=== PATIENT | male | born 1985 | race Caucasian/White ===

== ENCOUNTER 2020-05-08 16:29 | Inpatient (IN) | payer MEDICARE, MEDICAID, SELFPAY ==
[2020-05-08] VITALS (26 sets, daily range): BP systolic 131–157; BP diastolic 93–111; PULSE 63–94; RESP 12–21; TEMP 36.8; O2SAT 83–100; BMI 23.2
--- NOTE | ~2020-05-08 | CT_ITS ---
EXAMINATION: CT abdomen pelvis w con INDICATION: Patient unresponsive, possible overdose TECHNIQUE: Computed tomographic images of the abdomen and pelvis were obtained after the administrati on of 100 cc of Omnipaque 350 intravenous contrast. The dose-length product (DLP) was 1216.43 mGy-cm. Automated exposure control and iterative reconstruction technique were employed. COMPARISON: None available FINDINGS: There is near complete opacification of the right lower lobe. Airspace opacities are presen t in the left lower lobe. The heart size is normal. The liver, spleen, gallbladder, and adrenal gland s are normal. There is focal fatty infiltration the tail of the pancreas. The kidneys are unremarkabl e. No pathologically enlarged abdominal or pelvic lymph nodes are identified. There is no free intrap eritoneal gas or evidence of bowel obstruction. The appendix is normal. There is no free fluid. The b ladder is decompressed by Sosa catheter. Internal stabilization hardware stabilizes an old left pelv ic fractures. There was liquid stool in the colon to the level of the rectum. Healed right pelvic fra ctures are noted. There are also multiple healed bilateral rib fractures. Contrast in the inferior ve na cava is due to injection through a peripheral IV in the left foot. IMPRESSION: 1. Near complete opacification of the right lower lobe and left lower lobe airspace opacities, consis tent with pneumonia, possibly aspiration. 2. Liquid stool throughout the colon to the level of the rectum which could reflect diarrhea, possibl y enterocolitis. Reviewed, dictated and finalized at location A. ATIONS SUPPORT MANAGER IMPRESSION: 1. Near complete opacification of the right lower lobe and left lower lobe airs pace opacities, consistent with pneumonia, possibly aspiration. 2. Liquid stool throughout the colon to the level of the rectum which could ref lect diarrhea, possibly enterocolitis.
--- NOTE | ~2020-05-08 | XR_ITS ---
EXAMINATION: XR chest 1V portable DATE: 05/09/2020 06:10 INDICATION: Lung disease TECHNIQUE: frontal view of the chest was obtained. COMPARISON: Chest radiograph dated 05/08/2020 FINDINGS: Endotracheal tube tip 1.1 cm above the ubaldo. Nasogastric tube extends below the left hemidiaphragm with distal tip collimated off the study. Persistent volume loss in the right hemithorax. Sternal un changed scattered linear regions of atelectasis/scarring in the right mid and lower and left lower jennifer ng zones. Interval increase in more patchy airspace opacities scattered throughout the right lung. No pleural effusion or pneumothorax. Heart size is normal. Internal fixation of a chronic left scapular fracture with multiple plate and screws. Unchanged small radiopaque foreign body projecting over the left axilla. Multiple old healed bilateral rib fractures. IMPRESSION: 1. Increasing volume loss in the right hemithorax with increasing airspace opacities throughout the r ight lung consistent with atelectasis and/or pneumonia. Reviewed, dictated and finalized at location A. UNITY SERVICE SPECIALIST IMPRESSION: 1. Increasing volume loss in the right hemithorax with increasing airspace opac ities throughout the right lung consistent with atelectasis and/or pneumonia.
--- NOTE | ~2020-05-08 | CT_ITS ---
EXAMINATION: CT cervical spine wo con DATE: 05/08/2020 18:02 INDICATION: Head injury TECHNIQUE: Computed tomography (CT) of the cervical spine was performed without intravenous contrast. The dose-length product (DLP) was 451.45 mGy-cm. Automated exposure control and iterative reconstruc tion technique were employed. COMPARISON: None FINDINGS: There is no acute fracture, dislocation, or subluxation. Multiple healed bilateral rib frac tures are noted. In addition, stabilization hardware is present in the left scapula and mandible on t he hr manager radiograph. The vertebral body heights, alignment, and intervertebral disc spaces are normal . The paravertebral soft tissues are unremarkable. The odontoid is intact. IMPRESSION: 1. No acute osseous abnormality. Reviewed, dictated and finalized at location A. LATORY AFFAIRS STRATEGY SPECIALIST
--- NOTE | ~2020-05-08 | XR_ITS ---
EXAMINATION: XR abdomen NG/feed tube insert INDICATION: OG placement TECHNIQUE: Portable AP KUB-NG at 1957 hours COMPARISON: None available FINDINGS: The enteric tube is in the stomach. Contrast from earlier CT examination partially opacifie s the urinary tract. Right basilar airspace opacities are again noted. IMPRESSION: 1. Enteric tube in the stomach. Reviewed, dictated and finalized at location A. WATCH
--- NOTE | ~2020-05-08 | CT_ITS ---
EXAMINATION: CT brain wo con INDICATION: Head injury COMPARISON: 03/15/2019 TECHNIQUE: Standard unenhanced head CT. The dose-length product (DLP) was 605.33 mGy-cm. The mA was a djusted according to patient size. Iterative reconstruction technique was employed. FINDINGS: There is no intracranial hemorrhage, acute infarction, or abnormal mass lesion. The ventric les are normal. There is no abnormal mass effect or midline shift. The wilkins-white matter differentiat ion is normal. The basal cisterns are patent. The orbits are normal. There is mild mucosal thickening of the paranasal sinuses. IMPRESSION: 1. No acute intracranial abnormality. Reviewed, dictated and finalized at location A. DIPPER
--- NOTE | ~2020-05-08 | XR_ITS ---
EXAMINATION: XR chest ET placement INDICATION: Endotracheal tube insertion TECHNIQUE: Portable AP chest at 1724 hours COMPARISON: 08/14/2018 FINDINGS: The endotracheal tube ends 3.7 cm above the ubaldo. There are multiple old left-sided rib f ractures. Surgical hardware is noted in the left scapula. No pleural effusion or pneumothorax is iden tified. The cardiomediastinal silhouette is normal. There is chronic opacity of the right lung base. IMPRESSION: 1. Endotracheal tube 3.7 cm above the ubaldo. Reviewed, dictated and finalized at location A. ENTARY EDUCATOR
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
[2020-05-08] MEDS: RAPID SEQUENCE INTUBATION KIT 1 EACH (16:49)
--- NOTE | 2020-05-08 16:55 | ECG_ITS ---
Measurements Intervals [place] Rate: 88 P: 64 [place]: 156 QRS: 57 QRSD: 98 T: 55 QT: 365 QTc: 442 Interpretive Statements SINUS RHYTHM NORMAL ECG Electronically Signed On 05-08-2020 19:47:44 CD REACTOR OPERATOR HEAD by Siva Joseph D.O.
[2020-05-08 17:05] LABS: Alveolar/Arterial O2 Gradient 384.1 mmHg; Base Excess ABG 1.9 mEq/l (+/-2.0); Fractional Inspired Oxygen 100 %; Oxygen Content ABG 20.6 %vol (16.0-22.0); Oxygen Saturation ABG 99.7 % (95.0-100.0); Oxyhemoglobin 98.4 % THb (90.0-100.0); PCO2 ABG 39.1 mmHg (35.0-45.0); PO2 ABG 289.8 mmHg (80.0-100.0); Site Drawn LEFT RADIAL; Total Hemoglobin 14.4 g/dL (12.0-18.0); pH ABG 7.441 (7.350-7.450)
[2020-05-08 17:06] LABS: Device VENTILATOR; Modified Allen's Test Pass
[2020-05-08 17:09] LABS: Arterial Blood Gas Vent Mode CMV; Arterial Blood Gas Ventilator rate 18 /MIN
[2020-05-08 17:10] LABS: Arterial Blood Gas PEEP 5 cmH2O; Arterial Blood Gas Tidal Volume 540 ml
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
[2020-05-08] MEDS: NALOXONE HCL INJ 2 MG/2 ML AMP 4 MG (18:13)
[2020-05-08] MEDS: MIDAZOLAM HCL (*CRX) 2 MG/2 ML VIAL (18:25)
[2020-05-08] MEDS: FENTANYL 2,500MCG/NS250ML(*CRX 2,500 MCG/250 ML BAG IV CONT (18:38)
[2020-05-08] MEDS: SODIUM CHLORIDE 0.9% IV 1,000 ML 999 ML IV CONT ×2 (18:43→18:51)
[2020-05-08 18:55] LABS: Basophils Absolute Auto 0.1 K/mm3 (0.0-0.1); Basophils Percent Auto 0.6 % (0.2-1.2); Eosinophils Absolute Auto 0.4 K/mm3 (0-0.3); Eosinophils Percent Auto 3.7 % (0-4.4); Hematocrit 39.7 % (42.0-52.0); Hemoglobin 13.1 g/dL (14.0-18.0); Immature Granulocyte Absolute 0.04 K/mm3 (0.00-0.031); Immature Granulocyte Percent A 0.4 % (0-0.5); Lymphocytes Absolute Auto 1.94 K/mm3 (0.9-3.2); Lymphocytes Percent Auto 17.8 % (18.3-44.2); Mean Corpuscular Hemoglobin 31.6 pg (26-34); Mean Corpuscular Volume 95.7 fl (80-100); Monocytes Absolute Auto 0.9 K/mm3 (0.1-0.6); Monocytes Percent Auto 7.9 % (2.6-8.5); Neutrophils Absolute Auto 7.6 K/mm3 (1.3-6.7); Neutrophils Percent Auto 69.6 % (45.5-73.1); Platelet Count Result 210 k/mm3 (150-375); Red Blood Count 4.15 M/mm3 (4.6-6.20); Red Cell Distribution Width 11.9 % (11.5-14.5); White Blood Count 10.9 K/mm3 (4.5-10.0)
[2020-05-08 18:59] LABS: Add Urine Microscopic? YES; Appearance Urine Clear (Clear); Bilirubin Urine Negative (Negative); Blood Urine Negative (Negative); Color Urine Yellow (Yellow); Glucose Urine UA Negative (Negative); Ketones Urine Negative (Negative); Leukocyte Esterase Ur Negative LEU/UL (Negative); Mucus Urine Rare /lpf; Nitrate Urine Negative (Negative); Protein Urine 2+ mg/dL (Negative); Squamous Epithelial Cell Urine Occasional /hpf (Few); WBC Urine 0-3 /hpf
[2020-05-08 19:07] LABS: Acetaminophen < 10 ug/mL (10-30); Ammonia < 9 umol/L (9-30); Ethanol < 10 mg/dL (<10); Lactic Acid Reflex 1.5 mmol/L (0.7-2.1); Salicylate < 1.0 mg/dL (2-20)
[2020-05-08 19:09] LABS: Amphetamine Screen Urine Negative (Negative); Barbiturate Screen Urine Negative (Negative); Benzodiazepines Screen Urine Positive (Negative); Cannabinoid Screen Urine Positive (Negative); Cocaine Screen Urine Positive (Negative); Methadone Screen Urine Negative (Negative); Opiate Screen Urine Negative (Negative); Phencyclidine Screen Urine Negative (Negative)
[2020-05-08 19:16] LABS: Specific Grav Ur 1.041 (1.001-1.035)
[2020-05-08 19:23] LABS: Alanine Aminotransferase 81 U/L (4-50); Albumin Level 3.8 g/dL (3.5-5.1); Alkaline Phosphatase 90 U/L (38-126); Anion Gap 6 mmol/L (8-16); Aspartate Amino Transferase 71 U/L (17-59); Bilirubin,Total 0.6 mg/dL (0.2-1.3); Blood Urea Nitrogen 16 mg/dL (9-20); Carbon Dioxide 30 mmol/L (22-30); Chloride 98 mmol/L (98-107); Creatine Kinase 63 U/L (55-170); Estimated CRCL calculation 116 ml/min; Estimated Glomerular Filt Rate > 60; Glucose 91 mg/dL (75-110); Potassium 4.2 mmol/L (3.4-5.0); Sodium 134 mmol/L (137-145)
[2020-05-08 19:27] LABS: CRP 0.6 mg/dL (<1.0)
[2020-05-08 19:35] LABS: Troponin I < 0.012 ng/mL (0.000-0.034)
[2020-05-08 19:41] LABS: INR 0.9
[2020-05-08 19:42] LABS: Partial Thromboplastin Time 29.2 SECONDS (22.3-36.8)
[2020-05-08] MEDS: PROPOFOL IV EMULSION 100 ML 16.59 MG IV CONT (22:00)
--- NOTE | 2020-05-08 22:00 | ADMGEN ---
This patient, Tomas Cobb, was admitted to Intensive Care Unit-7. Patient/family oriented to hospital policies and general routines including ID bracelet, bed and alarms, visiting hours, pain management, procedures, bathroom and other care routines, personal items, smoking policy, room service/diet, and visiting hours. Information on how to activate the Rapid Response Team has been discussed. Patient/Family are encouraged to report perceived risks to care and to ask questions if they do not understand what they are told or what they should do.
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
[2020-05-09] VITALS (23 sets, daily range): BP systolic 109–138; BP diastolic 68–108; PULSE 72–110; RESP 17–22; TEMP 36.8–37.4; O2SAT 96–100; BMI 23.2
[2020-05-09] MEDS: SODIUM CHLORIDE 0.9% IV 1,000 ML 100 ML IV CONT
--- NOTE | 2020-05-09 00:44 | ADMGEN ---
This patient, Tomas Cobb, was admitted to Intensive Care Unit-7 on 05/08/2020 at 2200 from the Emergency Department. Patient/family oriented to hospital policies and general routines including ID bracelet, bed and alarms, visiting hours, pain management, procedures, bathroom and other care routines, personal items, smoking policy, room service/diet, and visiting hours. Information on how to activate the Rapid Response Team has been discussed. Patient/Family are encouraged to report perceived risks to care and to ask questions if they do not understand what they are told or what they should do.
[2020-05-09] MEDS: PROPOFOL IV EMULSION 100 ML 22.05 MG IV CONT ×3 (03:30→13:00)
[2020-05-09 06:49] LABS: Alveolar/Arterial O2 Gradient 185.5 mmHg; Base Excess ABG -2.1 mEq/l (+/-2.0); Carboxyhemoglobin 0.3 % THb (0-2.0); Fractional Inspired Oxygen 40 %; HCO3 ABG 19.6 mEq/l (22.0-26.0); Methemoglobin ABG 0.4 %THb (0-1.5); Oxygen Content ABG 18.4 %vol (16.0-22.0); Oxygen Saturation ABG 95.5 % (95.0-100.0); Oxyhemoglobin 93.9 % THb (90.0-100.0); PCO2 ABG 26.2 mmHg (35.0-45.0); PO2 ABG 69.6 mmHg (80.0-100.0); PO2 FiO2 Ratio Arterial Blood 1.74 %; Reduced Hemoglobin 5.4 %THb (0-5.0); Total Hemoglobin 13.9 g/dL (12.0-18.0); pH ABG 7.492 (7.350-7.450)
[2020-05-09 06:51] LABS: Arterial Blood Gas Ventilator rate 18 /MIN; Device VENTILATOR; Modified Allen's Test Unable to perform; Site Drawn RIGHT RADIAL
[2020-05-09 06:52] LABS: Arterial Blood Gas PEEP 5 cmH2O; Arterial Blood Gas Tidal Volume 540 ml; Arterial Blood Gas Vent Mode CMV
[2020-05-09] MEDS: ENOXAPARIN 40 MG/0.4 ML SYRINGE SUB-Q (09:18)
[2020-05-09] MEDS: FAMOTIDINE 20 MG/2 ML VIAL IV PUSH (09:18)
--- NOTE | 2020-05-09 11:09 | PCRCNOTE ---
ABG NOT DRAWN PER DR. EDOUARD.
--- NOTE | 2020-05-09 11:36 | PCDIET ---
If unable to extubate later today, recommend Jevity 1.2 at goal rate of 45mL/hr with 30mL water flush every 4 hours. Will follow up as scheduled.
[2020-05-09 12:14] LABS: SARS-CoV-2 RNA PCR Negative
--- NOTE | 2020-05-09 13:29 | WPDCNINT ---
Assessment and Plan Assessment and plan (1) Acute respiratory failure: Code(s): J96.00 - Acute respiratory failure, unspecified whether with hypoxia or hypercapnia Status: Acute Assessment and Plan: Secondary to encephalopathy and aspiration pneumonia CT MPRESSION: 1. Near complete opacification of the right lower lobe and left lower lobe airspace opacities, consistent with pneumonia, possibly aspiration. 2. Liquid stool throughout the colon to the level of the rectum which could reflect diarrhea, possibly enterocolitis. Patient placed on pressure support ventilation this morning but was not awake enough and had low tidal volume. Fentanyl infusion was discontinued. I reassess the patient later in the afternoon and he feels to be more awake of propofol and placed on pressure support ventilation. I will try to extubate if patient does well (2) Pneumonia: Code(s): J18.9 - Pneumonia, unspecified organism Status: Acute Assessment and Plan: Blood cultures pending Patient is on Zosyn (3) Polysubstance abuse: Code(s): F19.10 - Other psychoactive substance abuse, uncomplicated Status: Acute Assessment and Plan: Currently sedated with propofol and fentanyl. I have discontinue sedation and put him on sedation holiday and waiting for him to wake up enough to be extubated. (4) Encephalopathy: Code(s): G93.40 - Encephalopathy, unspecified Status: Acute Assessment and Plan: Secondary to poly substance abuse Head and cervical spine CT were negative Patient now waking up and following commands but is still fairly drowsy to be extubated Additional Plan DVT prophylaxis -Lovenox Stress ulcer prophylaxis -Pepcid Nutrition -NPO Code Status - Full Code Total Critical Care Time - 40 minutes Due to a high probability of clinically significant, life threatening deterioration, the patient required my highest level of preparedness to intervene emergently and I personally spent this critical care time directly and personally managing the patient. This critical care time included obtaining a history; examining the patient; pulse oximetry; ordering and review of studies; arranging urgent treatment with development of a management plan; evaluation of patient's response to treatment; frequent reassessment; and discussions with other providers. It was exclusive of separately billable procedures and treating other patients and teaching time. Please see Assessment and Plan section and the rest of the note for further information on patient assessment and treatment [id number] Programmer Consult Note Consult date: 05/09/20 Time Seen: 08:15 HPI: Tomas Cobb is a 34 year old male with unknown medical history except polysubstance abuse who was brought to the emergency department yesterday bya EMS after he was found unresponsive. In ED was suspected the patient overdosed on drugs and he did not respond to Narcan. He was intubated started on sedation. Was positive for benzodiazepine cocaine and cannabinoids. ED physician told me the patient had Xanax tablets in his socks. Patient was admitted to ICU for further evaluation management This morning when I saw the patient he continues to be on mechanical ventilation and was sedated with propofol and fentanyl. History obtained from chart and Physician sign out. Pt intubated and sedated and unable to provide any other history. Review of Systems Review of Systems: ROS unobtainable: Yes unobtainable due to endotracheal tube PMFSH Past Medical History Medical History Polysubstance abuse Surgical History Surgical History Surgical history unknown Family History Family History Other Family history unknown Social History Social History Social
--- NOTE | 2020-05-09 15:14 | PM.EVENT ---
Event Note Event Note Event Note: Midline placed as nurses were unable to draw any blood for samples. Patient a lot more awake and following commands. Will not cooperate for sedation holiday and breathing trial and is getting agitated. Since patient is saturating 100% on 30% FiO2 and was intubated mostly for altered mental status I will extubate patient and monitor. NPO for now
[2020-05-09 15:20] LABS: Alanine Aminotransferase 50 U/L (4-50); Albumin Level 3.1 g/dL (3.5-5.1); Alkaline Phosphatase 79 U/L (38-126); Anion Gap 6 mmol/L (8-16); Aspartate Amino Transferase 31 U/L (17-59); Blood Urea Nitrogen 8 mg/dL (9-20); CRP 2.7 mg/dL (<1.0); Calcium 8.1 mg/dL (8.4-10.2); Carbon Dioxide 25 mmol/L (22-30); Chloride 108 mmol/L (98-107); Creatine Kinase 34 U/L (55-170); Estimated CRCL calculation 131 ml/min; Estimated Glomerular Filt Rate > 60; Glucose 85 mg/dL (75-110); Magnesium 1.9 mg/dL (1.6-2.3); Phosphorus 3.6 mg/dL (2.5-4.5); Potassium 3.3 mmol/L (3.4-5.0); Sodium 139 mmol/L (137-145)
[2020-05-09 15:22] LABS: Basophils Percent Auto 0.3 % (0.2-1.2); Eosinophils Percent Auto 0.3 % (0-4.4); Hemoglobin 11.9 g/dL (14.0-18.0); Immature Granulocyte Absolute 0.03 K/mm3 (0.00-0.031); Immature Granulocyte Percent A 0.3 % (0-0.5); Lymphocytes Absolute Auto 1.81 K/mm3 (0.9-3.2); Lymphocytes Percent Auto 15.2 % (18.3-44.2); Mean Corpuscular HGB Conc 33.1 g/dl (32-36); Mean Corpuscular Hemoglobin 30.8 pg (26-34); Mean Corpuscular Volume 93.3 fl (80-100); Mean Platelet Volume 10.2 fl (7.4-10.4); Monocytes Percent Auto 8.6 % (2.6-8.5); Neutrophils Percent Auto 75.3 % (45.5-73.1); Platelet Count Result 191 k/mm3 (150-375); Red Blood Count 3.86 M/mm3 (4.6-6.20); Red Cell Distribution Width 12.2 % (11.5-14.5); White Blood Count 11.9 K/mm3 (4.5-10.0)
[2020-05-09 16:18] LABS: Thyroid Stimulating Hormone Reflex 0.713 uIU/mL (0.465-4.68)
[2020-05-09 16:33] LABS: Hepatitis B Surface Antigen Negative (Negative)
[2020-05-09 16:39] LABS: HAV RESULT Negative (Negative); Hepatitis B Core IgM Result Negative (Negative)
[2020-05-09 16:53] LABS: Hepatitis C Virus Antibody Reactive (Negative)
[2020-05-09] MEDS: oxyCODONE/ACETAMINOPHEN (*CRX) 5-325 MG TABLET 1 TABLET PO (17:08)
--- NOTE | 2020-05-09 20:10 | PC.NURSE ---
1914 pt calling from room that he wants to go home to take care of his dog and these things in his arm removed. Spoke to patient and explained he was found unresponsive and was intubated today and that it is recommended he stays for further observation. He says he knows but needs to get home to his dog. This nurse explained he would be leaving against medical advice and would be taking his health into his own hands. Pt states understanding. 1939 Pt answers orientation questions correctly, in 96% on room air, BP 131/80, SR at 100, resp 20, and he has a steady gait walking room. Deja Cuadra SENIOR PLANNING ANALYST made aware of pt wish to leave AMA. At 1944 Dr Reddy called and states that as long as patient understands he has pneumonia and needs antibiotics he can sign the form and leave if he wishes. Spoke again with patient and he states he knows he has pneumonia , he has had it before. This nurse explains he will not be leaving with prescriptions for the antibiotics he needs so it will get worse. Pt states he will follow up somewhere else. Pt dressed and walked to [facility] where he is waiting for the bus.
--- NOTE | 2020-05-09 23:49 | PM.EVENT ---
Event Note Event Note Event Note: I was notified by the patient's nurse at around 19:45 that he intended to leave against medical advice. The nurse reminded him that he had evidence of pneumonia on his chest x-ray that need to be treated however he did not wish to stay for that and left AMA. I.e. was not able to see the patient prior to him leaving.
[2020-05-16 18:27] LABS: Hepatitis C RNA, Quant PCR <15 IU/mL
== END 2020-05-09 20:05 | disposition left against medical advice (07) | DRG 208 ==
LOC: ANHED 19:21 → ANHICU 20:29
PROVIDERS: Internal Medicine; Physician Assistant; Admitting Provider Student in an Organized Health Care Education/Training Program; Emergency Provider Emergency Medicine; Visit Provider Student in an Organized Health Care Education/Training Program
DX: J96.00 Acute respiratory failure, unspecified whether with hypoxia or hypercapnia; J69.0 Pneumonitis due to inhalation of food and vomit; G92 Toxic encephalopathy; T50.915A Adverse effect of multiple unspecified drugs, medicaments and biological substances, initial encounter; F19.10 Other psychoactive substance abuse, uncomplicated; Z20.828 Contact with and (suspected) exposure to other viral communicable diseases; Z28.21 Immunization not carried out because of patient refusal; V19.9XXA Pedal cyclist (driver) (passenger) injured in unspecified traffic accident, initial encounter
CPT/HCPCS: 31500; 36415; 36556; 36569; 36600; 36680; 70450; 71045; 72125; 74177; 80053; 80074; 80307; 81001; 82140; 82375; 82550; 82805; 83050; 83605; 83735; 84100; 84443; 84484; 85025; 85610; 85730; 86140; 87040; 87522; 87635; 93005; 94003; 96361; 96365; 96375; 99291; A9270; C1751; C9803; J0171; J0692; J1650; J2250; J2310; J2543; J2704; J3010; J3370; J7030; L0140; Q9967; U0003

== ENCOUNTER 2021-03-03 23:35 | Emergency (ER) | payer MEDICARE, MEDICAID, SELFPAY ==
--- NOTE | ~2021-03-03 | CT_ITS ---
EXAMINATION: CT brain wo con DATE: 03/04/2021 00:44 INDICATION: Altered mental state. Possible overdose. TECHNIQUE: Computed tomography (CT) of the head was performed without intravenous contrast. The mA wa s adjusted according to patient size. Iterative reconstruction technique was employed. Exam dose: 52 9.67 mGy-cm total exam DLP. COMPARISON: 05/08/2020 CT brain FINDINGS: No intracranial mass lesion or hemorrhage or cerebrovascular accident, midline shift or mas s effect. In particular size is within normal range. No subdural or epidural hematoma. No fracture or bone destruction of the cranial vault. Included paranasal sinuses and mastoid air cell s are unremarkable. IMPRESSION: No significant abnormality Reviewed, dictated and finalized at [facility]. Reviewed, dictated and finalized at [facility]. IMPRESSION: No significant abnormality
[2021-03-03 23:40] VITALS: BP 127/90; PULSE 83; RESP 18; TEMP 36; O2SAT 94
--- NOTE | 2021-03-03 23:56 | ED.OVERDOSE ---
HPI - Overdose General Chief Complaint: Overdose Stated Complaint: altered loc Time Seen by Provider: 03/03/21 23:48 Source: EMS, RN notes reviewed and old records reviewed History of Present Illness HPI Narrative: Patient was brought in for altered mental status. [place]. Patient has known polysubstance abuse to include heroin. Patient was given Narcan in route with minimal improvement in his mental status. Patient also has a known history of TBI and difficulty with communication at baseline. Related Data Allergies Allergy/AdvReac Type Severity Reaction Status Date / Time haloperidol Allergy Severe Other Verified 08/12/20 12:22 Penicillins Allergy Severe Dyspnea / Verified 08/12/20 12:22 SOB Review of Systems Review of Systems: ROS unobtainable: Yes unobtainable due to mental status (Patient mumbles in response to questions does not give clear answers) PMFSH Past Medical History Medical History Polysubstance abuse Surgical History Surgical History Surgical history unknown Family History Family History Other Family history unknown Social History Social History Social History: The patient lives in [place]. Next of kin has yet to be identified. Smoking status: Unknown if ever smoked Alcohol intake: unknown Substance use: current Substance use type: opiates and other Other substance usage details: uknown if other Spiritual care concerns: No Exam Narrative: GENERAL: Well-appearing, well-nourished, and in no acute distress. HEAD: Normocephalic, atraumatic. EYES: PERRLA and EOMI. ENT: Nares clear, no rhinorrhea or epistaxis. Mucous membranes moist. NECK: Supple. No masses. No JVD CHEST: Clear to auscultation. No respiratory distress. No wheezes rales or rhonchi HEART: Regular rate and rhythm. No murmur heard. Normal peripheral pulses. ABDOMEN: Soft, nontender, nondistended, normal active bowel sounds. EXTREMITIES: Normal range of motion. No edema. SKIN: Warm, dry, no rash. NEURO: Move all extremities responds to noxious stimuli no focal asymmetry noted on the extremities or face alert PSYCH: Normal mood and affect. Course Reevaluation(s) Reevaluation #1: Patient more alert and verbal work-up reviewed with patient. Patient comfortable with continued outpatient monitoring Date: 03/04/21 Time: 07:23 Vital Signs Vital signs: Vital Signs Temperature 36.0 C L 03/03/21 23:40 Pulse Rate 83 03/03/21 23:40 Respiratory Rate 18 03/03/21 23:40 Blood Pressure 127/90 03/03/21 23:40 Pulse Oximetry 94 03/03/21 23:40 Temperature 36.0 C L 03/03/21 23:40 Pulse Rate 78 03/04/21 06:41 Respiratory Rate 18 03/04/21 06:41 Blood Pressure 111/76 03/04/21 06:41 Pulse Oximetry 100 03/04/21 06:41 MDM - Overdose MDM Narrative Medical decision making narrative: H&P as above, vss, pt looks clinically well, initial exam limited as patient appeared altered and was grunting in response to questions on repeat exam patient was speaking in complete sentences reporting he feels improved, labs with multiple positives on UDS otherwise labs are clinically unremarkable, img clinically unremarkable, additional labs/img considered, symptomatic relief available as needed, on reevaluation pt continues to looks clinically well. Suspect altered mental status was related illicit substances, dns intracranial hemorrhage, sepsis, CVA. plan to tx/monitor as op w/ pcm f/u findings/plan discussed with pt, pt agree/comfortable with plan, return precautions given Lab Data Result diagrams: 03/04/21 00:13 03/04/21 00:13 Labs: Lab Results 03/04/21 03/04/21 03/04/21 Range/Units 00:13 00:13 00:13 WBC 8.
--- NOTE | 2021-03-04 | ECG_ITS ---
Measurements Intervals [place] Rate: 74 P: 62 IN: 147 QRS: 55 QRSD: 105 T: 12 QT: 445 QTc: 494 Interpretive Statements SINUS RHYTHM INCOMPLETE RIGHT BUNDLE BRANCH BLOCK PROLONGED QT INTERVAL ABNORMAL ECG Electronically Signed On 03-04-2021 8:19:05 CDT by Siva Joseph D.O.
[2021-03-04 00:36] LABS: Acetaminophen < 10 ug/mL (10-30); Ammonia < 9 umol/L (9-30); Ethanol < 10 mg/dL (<10)
[2021-03-04 00:39] LABS: Basophils Absolute Auto 0.1 K/mm3 (0.0-0.1); Basophils Percent Auto 0.6 % (0.2-1.2); Eosinophils Absolute Auto 0.1 K/mm3 (0-0.3); Eosinophils Percent Auto 1.7 % (0-4.4); Hematocrit 38.5 % (42.0-52.0); Hemoglobin 12.8 g/dL (14.0-18.0); Immature Granulocyte Absolute 0.02 K/mm3 (0.00-0.031); Immature Granulocyte Percent A 0.2 % (0-0.5); Lactic Acid Reflex 1.1 mmol/L (0.7-2.1); Lymphocytes Absolute Auto 2.25 K/mm3 (0.9-3.2); Lymphocytes Percent Auto 27.1 % (18.3-44.2); Mean Corpuscular HGB Conc 33.2 g/dl (32-36); Mean Corpuscular Hemoglobin 32.2 pg (26-34); Mean Platelet Volume 9.6 fl (7.4-10.4); Monocytes Absolute Auto 0.7 K/mm3 (0.1-0.6); Neutrophils Absolute Auto 5.2 K/mm3 (1.3-6.7); Neutrophils Percent Auto 62.4 % (45.5-73.1); Platelet Count Result 188 k/mm3 (150-375); Red Blood Count 3.97 M/mm3 (4.6-6.20); Red Cell Distribution Width 11.8 % (11.5-14.5); White Blood Count 8.3 K/mm3 (4.5-10.0)
[2021-03-04 00:46] LABS: Alanine Aminotransferase 45 U/L (4-50); Alkaline Phosphatase 129 U/L (38-126); Anion Gap 8 mmol/L (8-16); Aspartate Amino Transferase 58 U/L (17-59); Bilirubin,Total 1.6 mg/dL (0.2-1.3); Blood Urea Nitrogen 16 mg/dL (9-20); Carbon Dioxide 30 mmol/L (22-30); Chloride 99 mmol/L (98-107); Estimated CRCL calculation 104 ml/min; Estimated Glomerular Filt Rate > 60; Glucose 70 mg/dL (65-110); Magnesium 1.9 mg/dL (1.6-2.3); Phosphorus 2.7 mg/dL (2.5-4.5); Potassium 3.9 mmol/L (3.4-5.0); Sodium 137 mmol/L (137-145)
--- NOTE | 2021-03-04 01:10 | PC.NURSE ---
pt pulled away with iv attempt, pt refusing iv, dr. carolina aware.
[2021-03-04 01:47] LABS: Add Urine Microscopic? YES; Appearance Urine Clear (Clear); Bilirubin Urine Negative (Negative); Blood Urine Negative (Negative); Color Urine Yellow (Yellow); Glucose Urine UA Negative (Negative); Ketones Urine Negative (Negative); Leukocyte Esterase Ur Trace LEU/UL (Negative); Mucus Urine Rare /lpf; Nitrate Urine Negative (Negative); Protein Urine Negative (Negative); Specific Grav Ur 1.017 (1.001-1.035); Squamous Epithelial Cell Urine Rare /hpf (Few); Urobilinogen Urine Negative mg/dL (<2.0); WBC Urine 16-20 /hpf
[2021-03-04 02:04] LABS: Barbiturate Screen Urine Negative (Negative); Benzodiazepines Screen Urine Positive (Negative)
[2021-03-04 02:06] LABS: Cannabinoid Screen Urine Positive (Negative); Cocaine Screen Urine Positive (Negative); Methadone Screen Urine Positive (Negative); Opiate Screen Urine Negative (Negative); Phencyclidine Screen Urine Negative (Negative)
[2021-03-04 02:34] LABS: Amphetamine Screen Urine Positive (Negative)
[2021-03-04 02:37] VITALS: PULSE 85; RESP 18; O2SAT 100
[2021-03-04 04:12] VITALS: BP 101/74; PULSE 75; RESP 20; O2SAT 100
[2021-03-04 06:16] VITALS: BP 108/75; PULSE 78; RESP 18; O2SAT 100
[2021-03-04 06:41] VITALS: BP 111/76; PULSE 78; RESP 18; O2SAT 100
--- NOTE | 2021-03-04 07:09 | PC.NURSE ---
Report taken from JAVIER Molina.
--- NOTE | 2021-03-04 08:08 | PC.NURSE ---
Multiple attempts made to discharge pt. Each time pt requests something more or reports he is missing one of his belongings. Pt requested meal; pt was given meal. Pt was given scrub top as he lost his shirt. As pt was getting ready to leave he became agitated and reported his phone and wallet were missing. Pt's belongings were never removed from room and what he came in with remained in the room with him. Pt very agitated with staff and stated he knows he had his wallet and phone with him when he came in. RN assisted pt in searching room for belongings but they were not present. Pt gave RN his phone number to call to listen for ring. Called pt's phone and Olvin answered pt's phone. Pt states this is his friend who his phone is in the possession of. Pt using facility phone to call friend to make arrangements for transportation.
[2021-03-04 08:14] VITALS: BP 111/76; PULSE 78; RESP 18; O2SAT 100
== END 2021-03-04 08:16 | disposition home or self-care (01) ==
PROVIDERS: Emergency Provider Emergency Medicine; PCP Internal Medicine
DX: F15.10 Other stimulant abuse, uncomplicated (principal); F14.10 Cocaine abuse, uncomplicated; F12.10 Cannabis abuse, uncomplicated; F13.10 Sedative, hypnotic or anxiolytic abuse, uncomplicated; I45.10 Unspecified right bundle-branch block; I45.81 Long QT syndrome; Z87.820 Personal history of traumatic brain injury
CPT/HCPCS: 36415; 51701; 70450; 80053; 80307; 81001; 82140; 83605; 83735; 84100; 84443; 85025; 87086; 93005; 99284

== ENCOUNTER 2021-03-18 11:52 | Inpatient (IN) | payer MEDICARE, MEDICAID, SELFPAY ==
[2021-03-18] VITALS (29 sets, daily range): BP systolic 136–172; BP diastolic 93–117; PULSE 68–110; RESP 14–39; TEMP 36.8–36.9; O2SAT 95–100; BMI 20.9
--- NOTE | ~2021-03-18 | XR_ITS ---
XR chest 1V portable 03/18/2021 13:50 Indication: Overdose. Evaluate for aspiration. Procedure: AP portable chest Comparison: 05/09/2020 Findings: Subtle patchy bilateral infiltrates which may represent edema or pneumonia. Right basilar a telectasis. There are surgical changes of the left shoulder. No significant effusion or pneumothorax. Heart size is normal. Impression: 1: Subtle patchy bilateral infiltrates may represent pneumonia or edema. Reviewed, dictated and finalized at [facility]. Impression: 1: Subtle patchy bilateral infiltrates may represent pneumonia or edema.
--- NOTE | ~2021-03-18 | XR_ITS ---
EXAMINATION: XR chest 1V portable DATE: 03/19/2021 09:05 INDICATION: Shortness of breath. TECHNIQUE: frontal view of the chest was obtained. COMPARISON: Chest radiograph dated 03/18/2021 and 08/14/2018 FINDINGS: Chronic pleural-parenchymal scarring with blunting at the right costophrenic angle. Additional mild s treaky lingular atelectasis/scarring along side a left paracardial no other airspace opacities, pulmo nary edema, pleural effusion or pneumothorax. Fat pad at the apex of the heart. The cardiomediastinal silhouette is normal. Bilateral old rib fractures and old healed left scapular fracture with interna l fixation with multiple plates and screws. Additional small retained metallic foreign body in the so ft tissues at the left axilla. IMPRESSION: 1. Bibasilar atelectasis/scarring. No other acute cardiopulmonary disease. Reviewed, dictated and finalized at [facility].
--- NOTE | ~2021-03-18 | CT_ITS ---
EXAMINATION: CT brain wo con DATE: 03/18/2021 13:46 INDICATION: Altered mental status. TECHNIQUE: Computed tomography (CT) of the head was performed without intravenous contrast. The mA wa s adjusted according to patient size. Iterative reconstruction technique was employed. The dose-lengt h product was 605.33 mGy-cm. COMPARISON: Head CT 03/04/21 FINDINGS: There is no intracranial hemorrhage, acute infarction, or abnormal intracranial mass lesion . The ventricles are normal in size. There is mild mucosal thickening in the paranasal sinuses. The m astoid air cells are normal. IMPRESSION: 1. Normal brain. Reviewed, dictated and finalized at location [facility]. IMPRESSION: 1. Normal brain.
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
[2021-03-18] MEDS: NALOXONE HCL INJ 2 MG/2 ML AMP (12:30)
--- NOTE | 2021-03-18 12:40 | ECG_ITS ---
Measurements Intervals [place] Rate: 77 P: 41 SC: 142 QRS: 58 QRSD: 98 T: 28 QT: 400 QTc: 454 Interpretive Statements SINUS RHYTHM INCOMPLETE RIGHT BUNDLE BRANCH BLOCK BORDERLINE T WAVE ABNORMALITY- INFERIOR LEADS BASELINE ARTIFACT- I, III, AVR, AVL, AVF BORDERLINE ECG Electronically Signed On 03-18-2021 19:56:46 CDT by Siva Joseph D.O.
[2021-03-18] MEDS: NALOXONE HCL INJ 2 MG/2 ML AMP IV PUSH (12:44)
--- NOTE | 2021-03-18 12:46 | PC.NURSE ---
narcan given with no change in pt condition. Continues to have grunting respirations
[2021-03-18] MEDS: SODIUM CHLORIDE 0.9% IV 1,000 ML 999 ML IV CONT (13:00)
[2021-03-18 13:07] LABS: INR 0.9; Prothrombin Time 11.7 Seconds (11.1-14.7)
[2021-03-18 13:08] LABS: Partial Thromboplastin Time 27.5 SECONDS (22.3-36.8)
[2021-03-18 13:13] LABS: Alveolar/Arterial O2 Gradient 86.6 mmHg; Base Excess ABG 2.1 mEq/l (+/-2.0); Fractional Inspired Oxygen 28 %; HCO3 ABG 24.4 mEq/l (22.0-26.0); Oxygen Content ABG 18.1 %vol (16.0-22.0); Oxygen Saturation ABG 96.5 % (95.0-100.0); Oxyhemoglobin 95.2 % THb (90.0-100.0); PCO2 ABG 31.1 mmHg (35.0-45.0); PO2 ABG 76.3 mmHg (80.0-100.0); PO2 FiO2 Ratio Arterial Blood 2.73 %; Total Hemoglobin 13.5 g/dL (12.0-18.0)
[2021-03-18 13:14] LABS: Device NASAL CANNULA; Modified Allen's Test Pass; Site Drawn RIGHT RADIAL; pH ABG 7.512 (7.350-7.450)
[2021-03-18 13:17] LABS: Basophils Absolute Auto 0.1 K/mm3 (0.0-0.1); Basophils Percent Auto 0.5 % (0.2-1.2); Eosinophils Absolute Auto 0.4 K/mm3 (0-0.3); Eosinophils Percent Auto 3.6 % (0-4.4); Hematocrit 35.7 % (42.0-52.0); Hemoglobin 11.7 g/dL (14.0-18.0); Immature Granulocyte Absolute 0.03 K/mm3 (0.00-0.031); Immature Granulocyte Percent A 0.3 % (0-0.5); Lymphocytes Absolute Auto 2.74 K/mm3 (0.9-3.2); Lymphocytes Percent Auto 28.4 % (18.3-44.2); Mean Corpuscular HGB Conc 32.8 g/dl (32-36); Mean Corpuscular Hemoglobin 33.1 pg (26-34); Mean Corpuscular Volume 101.1 fl (80-100); Mean Platelet Volume 9.8 fl (7.4-10.4); Monocytes Absolute Auto 0.7 K/mm3 (0.1-0.6); Monocytes Percent Auto 6.8 % (2.6-8.5); Neutrophils Absolute Auto 5.8 K/mm3 (1.3-6.7); Neutrophils Percent Auto 60.4 % (45.5-73.1); Platelet Count Result 239 k/mm3 (150-375); Red Blood Count 3.53 M/mm3 (4.6-6.20); Red Cell Distribution Width 11.7 % (11.5-14.5); White Blood Count 9.7 K/mm3 (4.5-10.0)
[2021-03-18 13:22] LABS: Lactic Acid Reflex 0.7 mmol/L (0.7-2.1)
[2021-03-18 13:23] LABS: Alanine Aminotransferase 29 U/L (4-50); Albumin Level 4.3 g/dL (3.5-5.1); Alkaline Phosphatase 90 U/L (38-126); Anion Gap 6 mmol/L (8-16); Aspartate Amino Transferase 49 U/L (17-59); Bilirubin,Total 0.4 mg/dL (0.2-1.3); Blood Urea Nitrogen 17 mg/dL (9-20); Carbon Dioxide 31 mmol/L (22-30); Chloride 105 mmol/L (98-107); Estimated CRCL calculation 109 ml/min; Estimated Glomerular Filt Rate > 60; Glucose 88 mg/dL (65-110); Potassium 3.6 mmol/L (3.4-5.0); Sodium 142 mmol/L (137-145)
[2021-03-18 13:27] LABS: Acetaminophen < 10 ug/mL (10-30); Ethanol < 10 mg/dL (<10); Salicylate < 1.0 mg/dL (2-20)
[2021-03-18 13:33] LABS: Troponin I < 0.012 ng/mL (0.000-0.034)
[2021-03-18 13:49] LABS: Add Urine Microscopic? YES; Appearance Urine Clear (Clear); Bilirubin Urine Negative (Negative); Blood Urine Negative (Negative); Color Urine Yellow (Yellow); Glucose Urine UA Negative (Negative); Ketones Urine Negative (Negative); Leukocyte Esterase Ur Negative LEU/UL (Negative); Mucus Urine Rare /lpf; Nitrate Urine Negative (Negative); Protein Urine Negative (Negative); RBC Urine 0-2 /hpf (0-2); Specific Grav Ur 1.019 (1.001-1.035); Squamous Epithelial Cell Urine Occasional /hpf (Few); WBC Urine 0-3 /hpf
[2021-03-18 14:05] LABS: Barbiturate Screen Urine Negative (Negative); Benzodiazepines Screen Urine Positive (Negative)
[2021-03-18 14:18] LABS: Bacteria Urine Trace /hpf; Cannabinoid Screen Urine Positive (Negative); Cocaine Screen Urine Positive (Negative); Methadone Screen Urine Positive (Negative); Opiate Screen Urine Negative (Negative); Phencyclidine Screen Urine Negative (Negative)
[2021-03-18 14:32] LABS: Amphetamine Screen Urine Positive (Negative)
[2021-03-18] MEDS: FUROSEMIDE INJ 40 MG/4 ML VIAL 20 MG IV PUSH (15:08)
[2021-03-18 15:12] LABS: Alveolar/Arterial O2 Gradient 101.5 mmHg; Base Excess ABG -1.1 mEq/l (+/-2.0); Carboxyhemoglobin 0.3 % THb (0-2.0); Fractional Inspired Oxygen 30 %; HCO3 ABG 23.3 mEq/l (22.0-26.0); Methemoglobin ABG 0.3 %THb (0-1.5); Oxygen Saturation ABG 93.6 % (95.0-100.0); Oxyhemoglobin 92.7 % THb (90.0-100.0); PCO2 ABG 38.2 mmHg (35.0-45.0); PO2 ABG 67.5 mmHg (80.0-100.0); PO2 FiO2 Ratio Arterial Blood 2.25 %; Reduced Hemoglobin 6.7 %THb (0-5.0); pH ABG 7.404 (7.350-7.450)
[2021-03-18 15:13] LABS: Modified Allen's Test Pass; Site Drawn RIGHT RADIAL
[2021-03-18 15:14] LABS: Device NON-INVASIVE VENT; Non-Invasive Expiratory Pressure 5 CMH2O; Non-Invasive Inspiratory Pressure 12 CMH2O; Non-Invasive Vent Rate 16 /MIN
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
[2021-03-18 15:31] LABS: Glucose Point of Care 103 mg/dl (65-105)
[2021-03-18] MEDS: levoFLOXacin 500 MG/D5W 100 ML 500 MG/100 ML BAG 100 MG IVPB (15:45)
--- NOTE | 2021-03-18 16:30 | PC.NURSE ---
Updated mother on patient condition(Antonia)
--- NOTE | 2021-03-18 16:35 | PC.NURSE ---
Verify with doctor to draw blood cultures before antibiotic admin. pt a hard stick and required multiple tries to get blood and his cooperation
[2021-03-18 16:37] LABS: Lactic Acid Reflex 0.7 mmol/L (0.7-2.1)
--- NOTE | 2021-03-18 17:12 | PC.NURSE ---
Pt took out his IV and urinated all over the floor,ultra sound line place 22g Left arm
--- NOTE | 2021-03-18 17:28 | PC.NURSE ---
pt transferred with fluids running
--- NOTE | 2021-03-18 17:50 | PC.NURSE ---
This patient, Tomas Cobb, was admitted to Intensive Care Unit-10. Patient/family oriented to hospital policies and general routines including ID bracelet, bed and alarms, visiting hours, pain management, procedures, bathroom and other care routines, personal items, smoking policy, room service/diet, and visiting hours. Information on how to activate the Rapid Response Team has been discussed. Patient/Family are encouraged to report perceived risks to care and to ask questions if they do not understand what they are told or what they should do.
[2021-03-18] MEDS: SODIUM CHLORIDE 0.9% IV 1,000 ML 125 ML IV CONT (18:02)
[2021-03-19] VITALS (10 sets, daily range): BP systolic 102–127; BP diastolic 66–90; PULSE 78–96; RESP 12–19; TEMP 36.4–36.6; O2SAT 96–100
[2021-03-19] MEDS: SODIUM CHLORIDE 0.9% IV 1,000 ML 125 ML IV CONT (01:58)
[2021-03-19 04:38] LABS: Hematocrit 38.3 % (42.0-52.0); Hemoglobin 12.6 g/dL (14.0-18.0); Mean Corpuscular HGB Conc 32.9 g/dl (32-36); Mean Corpuscular Hemoglobin 32.5 pg (26-34); Mean Corpuscular Volume 98.7 fl (80-100); Mean Platelet Volume 9.3 fl (7.4-10.4); Platelet Count Result 238 k/mm3 (150-375); Red Blood Count 3.88 M/mm3 (4.6-6.20); Red Cell Distribution Width 11.5 % (11.5-14.5); White Blood Count 9.5 K/mm3 (4.5-10.0)
[2021-03-19 04:59] LABS: Alanine Aminotransferase 24 U/L (4-50); Albumin Level 3.5 g/dL (3.5-5.1); Alkaline Phosphatase 77 U/L (38-126); Anion Gap 7 mmol/L (8-16); Aspartate Amino Transferase 30 U/L (17-59); Bilirubin,Total 0.7 mg/dL (0.2-1.3); Blood Urea Nitrogen 11 mg/dL (9-20); Calcium 8.7 mg/dL (8.4-10.2); Carbon Dioxide 25 mmol/L (22-30); Chloride 109 mmol/L (98-107); Estimated CRCL calculation 124 ml/min; Estimated Glomerular Filt Rate > 60; Glucose 81 mg/dL (65-110); Magnesium 1.7 mg/dL (1.6-2.3); Potassium 3.5 mmol/L (3.4-5.0); Sodium 141 mmol/L (137-145)
[2021-03-19 05:04] LABS: Iron 88 ug/dL (49-181)
[2021-03-19 05:13] LABS: Percent Iron Saturation 28 % (20-50)
[2021-03-19 05:36] LABS: Thyroid Stimulating Hormone Reflex 0.245 uIU/mL (0.465-4.68)
[2021-03-19 06:08] LABS: Folic Acid > 20.0 ng/mL (2.76->20)
[2021-03-19 06:35] LABS: Free T4 Free Thyroxine Reflex 1.39 ng/dL (0.78-2.19)
[2021-03-19 07:28] LABS: Total Triiodothyronine (T3) 1.33 NG/ML (0.97-1.69)
--- NOTE | 2021-03-19 09:26 | WPDCNINT ---
Assessment and Plan Assessment and plan (1) Acute respiratory failure: Code(s): J96.00 - Acute respiratory failure, unspecified whether with hypoxia or hypercapnia Status: Acute Assessment and Plan: Likely secondary to pulmonary edema as hypoxia has now significantly resolved Patient is currently on room air Chest x-ray done this morning just shows bilateral atelectasis He did get a dose of Lasix, dose of levofloxacin ER Cultures were sent He is afebrile and has normal WBC I will hold further antibiotics at this time COVID-19 PCR was also sent and is pending Patient is currently in isolation (2) Encephalopathy: Code(s): G93.40 - Encephalopathy, unspecified Status: Acute Assessment and Plan: Likely secondary to polysubstance abuse and it appears to have resolved now as patient is now alert oriented x3 Head CT was negative on presentation Patient does has history of TBI and unknown baseline cognitive function Monitor (3) Drug overdose: Code(s): T50.901A - Poisoning by unspecified drugs, medicaments and biological substances, accidental (unintentional), initial encounter Status: Acute Assessment and Plan: His UDS was positive for methadone benzodiazepine amphetamine cocaine and cannabinoids He also admits to using fentanyl and drinking alcohol although his alcohol level is negative Mental status has improved Monitor (4) Polysubstance abuse: Code(s): F19.10 - Other psychoactive substance abuse, uncomplicated Status: Acute (5) Suicidal ideation: Code(s): R45.851 - Suicidal ideations Status: Acute Assessment and Plan: Currently patient has one-to-one sitter (6) Anxiety and depression: Code(s): F41.9 - Anxiety disorder, unspecified; F32.A - Depression, unspecified Status: Acute Assessment and Plan: Patient currently not on any treatment for either Patient will be evaluated by Psychiatry (7) Electrolyte abnormality: Code(s): E87.8 - Other disorders of electrolyte and fluid balance, not elsewhere classified Status: Acute Assessment and Plan: Replaced potassium (8) Suspected COVID-19 virus infection: Code(s): Z20.822 - Contact with and (suspected) exposure to COVID-19 Status: Acute Assessment and Plan: COVID-19 suspected. SARS-CoV-2 PCR sent and results pending Patient is in Airborne, Droplet and Contact Isolation Additional Plan DVT prophylaxis -SCDs Nutrition -regular diet Code Status - Full Code Transfer out of ICU today Project Economist Consult Note Consult date: 03/19/21 Time Seen: 08:15 HPI: Tomas Cobb is a 35 year old male with history of polysubstance abuse, traumatic brain injury, bipolar disorder, depression, and anxiety who was brought to the emergency department today via EMS from home after he called 911 with reports of body pain. According to the EMS report, the patient contacted 911 with complaints of body pain although on their arrival he was unable to describe or locate the pain and he appeared quite somnolent. The patient requested to go to the hospital and in route he was difficult to keep awake and he was administered 2 mg of naloxone intranasally. Shortly thereafter he became more alert and he did admit to injecting IV fentanyl earlier in the day. He also reported to EMS that he had intentions of harming himself and ?I just want to .? Labs done on arrival to the emergency department were reassuring without any significant abnormalities. His urine drug screen was positive for cocaine, cannabinoids, benzodiazepines, methadone, and methamphetamines. It was not positive for opiates however he did admit to using what he thought was IV fentanyl earlier today. He was started on Narcan infusion in the ER. He was mildly hypoxic on arrival however had increasing oxygen requirements and a subsequent chest x-ray showed subtle, patchy bilateral infiltrates and it was thought that perhap
[2021-03-19 11:45] LABS: EDCOVIDSCREEN Negative (Negative)
--- NOTE | 2021-03-19 13:16 | PM.IMPN ---
Progress Note: A&P Assessment and Plan (1) Acute respiratory failure: Code(s): J96.00 - Acute respiratory failure, unspecified whether with hypoxia or hypercapnia Status: Acute Assessment and Plan: Likely secondary to transient pulmonary edema as hypoxia has now significantly resolved. He was on room air at the time of my evaluation. Chest x-ray done this morning just shows bilateral atelectasis He did get a dose of Lasix, dose of levofloxacin ER Cultures were sent which will be followed. He is afebrile and has normal WBC I will hold further antibiotics at this time. His presentation is not suggestive of any infective process. COVID-19 PCR was also sent and is pending Patient is currently in isolation which can discontinued when COVID-19 tests come back and if negative. (2) Encephalopathy: Code(s): G93.40 - Encephalopathy, unspecified Status: Acute Assessment and Plan: Likely secondary to polysubstance abuse and it appears to have resolved now as patient is now alert oriented x3 Head CT was negative on presentation Patient does has history of TBI and unknown baseline cognitive function Monitor (3) Drug overdose: Code(s): T50.901A - Poisoning by unspecified drugs, medicaments and biological substances, accidental (unintentional), initial encounter Status: Acute Assessment and Plan: His UDS was positive for methadone benzodiazepine amphetamine cocaine and cannabinoids He also admits to using fentanyl and drinking alcohol although his alcohol level is negative Mental status has improved Monitor He was encouraged to stop drug abuse and alcohol abuse. (4) Polysubstance abuse: Code(s): F19.10 - Other psychoactive substance abuse, uncomplicated Status: Acute Assessment and Plan: His urine is positive for multiple drugs including methadone, benzodiazepine, amphetamine, cocaine and cannabinoids. He was encouraged to stop drug abuse. (5) Suicidal ideation: Code(s): R45.851 - Suicidal ideations Status: Acute Assessment and Plan: Currently patient has one-to-one sitter Crisis team has evaluated the patient who are recommending involuntary admission to a psych facility. (6) Anxiety and depression: Code(s): F41.9 - Anxiety disorder, unspecified; F32.A - Depression, unspecified Status: Acute Assessment and Plan: Patient currently not on any treatment for either Medications as per psych recommendations. (7) Electrolyte abnormality: Code(s): E87.8 - Other disorders of electrolyte and fluid balance, not elsewhere classified Status: Acute Assessment and Plan: Replaced potassium (8) Suspected COVID-19 virus infection: Code(s): Z20.822 - Contact with and (suspected) exposure to COVID-19 Status: Acute Assessment and Plan: COVID-19 suspected based on chest x-ray finding. Chest x-ray today seems normal with some bibasilar atelectasis. SARS-CoV-2 PCR sent and results pending Patient is in Airborne, Droplet and Contact Isolation Additional Plan DVT prophylaxis -SCDs Nutrition -regular diet Code Status - Full Code Patient is medically stable to get discharged to a psych facility and for transferring to the psych facility once his COVID-19 tests come back negative. Subjective Date/time seen: 03/19/21 13:16 He was still complaining of pain all over his body especially in the left shoulder and left hip area. His pain is chronic and has not got worsened over the last few days. He does not see a primary care physician at his baseline. He takes over the street drugs including IV drugs to treat his pain. He was tearful and crying during my evaluation. He denied have any chest pain or shortness of breath. He denied have any nausea vomiting abdominal pain fever and chills. Review of Systems Review of Systems: All systems reviewed & are unremarkable except as noted in HPI an
[2021-03-19 17:42] LABS: SARS-CoV-2 RNA PCR Negative
--- NOTE | 2021-03-20 05:51 | P.CDI_ITS ---
CDI Query Clarification Request -There is documentation that acute respiratory failure was likely secondary to pulmonary edema. Please further specify acuity of pulmonary edema: * Acute * Chronic * Acute on Chronic * Unable to determine <Ashley Chand RN - Last Filed: 03/20/21 05:55> Acute respiratory failure secondary to transient pulmonary edema due to fentanyl overdose <Lauren Coburn MD - Last Filed: 03/20/21 14:51>
--- NOTE | 2021-03-20 14:44 | PM.TDS ---
Transfer Discharge Sum: Prov Provider Date of admission: 03/18/21 14:49 Primary care physician: UNKNOWN,DOCTOR Admitting clinician: Alka Omer MD Consults: 03/18/21 14:50 Consult to Physician Routine Comment: Consulting Provider: Arash Reddy Reason for consultation: overdose, respiratory depression Has provider been notified: Yes DS: Admitting Diagnosis Discharge Date 03/19/21 Admitting Diagnosis Acute encephalopathy Acute respiratory failure Drug overdose Polysubstance abuse Microcytic anemia Suicidal ideation Hypertension DS: Discharge Diagnosis Discharge Diagnosis (1) Acute respiratory failure: Code(s): J96.00 - Acute respiratory failure, unspecified whether with hypoxia or hypercapnia Status: Acute Assessment and Plan: Likely secondary to transient pulmonary edema as hypoxia has now significantly resolved. He was on room air at the time of my evaluation. Chest x-ray done this morning just shows bilateral atelectasis He did get a dose of Lasix, dose of levofloxacin ER Cultures were sent and are negative so far. He is afebrile and has normal WBC I will hold further antibiotics at this time. His presentation is not suggestive of any infective process. COVID-19 PCR was also sent which was negative. Patient was in isolation but that has been discontinued offered a COVID-19 test came back negative. (2) Encephalopathy: Code(s): G93.40 - Encephalopathy, unspecified Status: Acute Assessment and Plan: Likely secondary to polysubstance abuse and it appears to have resolved now as patient is now alert oriented x3 Required Narcan drip briefly but that has been discontinued after his mental status improved. Head CT was negative on presentation Patient does has history of TBI and unknown baseline cognitive function Monitor (3) Drug overdose: Code(s): T50.901A - Poisoning by unspecified drugs, medicaments and biological substances, accidental (unintentional), initial encounter Status: Acute Assessment and Plan: His UDS was positive for methadone benzodiazepine amphetamine cocaine and cannabinoids He also admits to using fentanyl and drinking alcohol although his alcohol level is negative Mental status has improved Monitor He was encouraged to stop drug abuse and alcohol abuse. (4) Polysubstance abuse: Code(s): F19.10 - Other psychoactive substance abuse, uncomplicated Status: Acute Assessment and Plan: His urine is positive for multiple drugs including methadone, benzodiazepine, amphetamine, cocaine and cannabinoids. He was encouraged to stop drug abuse. (5) Suicidal ideation: Code(s): R45.851 - Suicidal ideations Status: Acute Assessment and Plan: He was on one-to-one sitter Crisis team has evaluated the patient who are recommending involuntary admission to a psych facility. Bed has been arranged. All the forms were filled by myself. He is being discharged in a stable condition with no medical issues which are ongoing. He is clear for discharge from medical perspective. (6) Anxiety and depression: Code(s): F41.9 - Anxiety disorder, unspecified; F32.A - Depression, unspecified Status: Acute Assessment and Plan: Patient currently not on any treatment for either Medications as per psych recommendations. (7) Electrolyte abnormality: Code(s): E87.8 - Other disorders of electrolyte and fluid balance, not elsewhere classified Status: Acute Assessment and Plan: Replaced potassium (8) Suspected COVID-19 virus infection: Code(s): Z20.822 - Contact with and (suspected) exposure to COVID-19 Status: Acute Assessment and Plan: COVID-19 suspected based on chest x-ray finding. Repeat Chest x-ray today seems normal with some bibasilar atelectasis. SARS-CoV-2 PCR sent which is negative. Patient was in Airborne, Droplet and Contact Isolatio
== END 2021-03-19 17:00 | DRG 917 ==
LOC: ANHED 15:21 → ANHICU 03-19 07:24
PROVIDERS: Internal Medicine; Physician Assistant; Admitting Provider Hospitalist; Emergency Provider Emergency Medicine; Visit Provider Internal Medicine Critical Care Medicine
DX: T50.901A Poisoning by unspecified drugs, medicaments and biological substances, accidental (unintentional), initial encounter (principal); J96.00 Acute respiratory failure, unspecified whether with hypoxia or hypercapnia; G92.8 Other toxic encephalopathy; R45.851 Suicidal ideations; Z20.822 Contact with and (suspected) exposure to COVID-19; Z28.21 Immunization not carried out because of patient refusal; F17.210 Nicotine dependence, cigarettes, uncomplicated; R03.0 Elevated blood-pressure reading, without diagnosis of hypertension; F19.10 Other psychoactive substance abuse, uncomplicated; R93.89 Abnormal findings on diagnostic imaging of other specified body structures; D53.9 Nutritional anemia, unspecified; F31.9 Bipolar disorder, unspecified; F41.9 Anxiety disorder, unspecified; E87.8 Other disorders of electrolyte and fluid balance, not elsewhere classified; Z87.820 Personal history of traumatic brain injury
CPT/HCPCS: 36415; 36600; 70450; 71045; 80053; 80307; 81001; 82375; 82607; 82728; 82746; 82805; 82948; 83050; 83540; 83550; 83605; 83735; 84439; 84443; 84480; 84484; 85025; 85027; 85610; 85730; 87040; 87426; 93005; 94002; 96365; 96376; 99285; C9803; J1940; J1956; J2310; J7030; J7050; U0003; U0005